=== PATIENT | female | born 1960 | race Two or more races ===

== ENCOUNTER 2019-06-04 11:26 | Day surgery (SDC) | payer OTHER ==
[2019-05-29 10:35] VITALS: BMI 43.9
[2019-06-04] MEDS ORDERED: PROPOFOL 20 ML ONE (12:19)
[2019-06-04 15:49] VITALS: PULSE 73; TEMP 98
[2019-06-04 15:51] VITALS: BP 121/71
== END 2019-06-04 14:30 | disposition home or self-care (01) ==
LOC: FASU-ENDO 11:26
PROVIDERS: ATTEND Internal Medicine Gastroenterology
PROC: 0DJD8ZZ Inspection of Lower Intestinal Tract, Via Natural or Artificial Opening Endoscopic (ICD-10-PCS; principal; 2019-06-04 13:42)
DX: Z12.11 Encounter for screening for malignant neoplasm of colon (principal); K64.0 First degree hemorrhoids
CPT/HCPCS: 82962